=== PATIENT | female | born 1990 | race Caucasian/White ===

== ENCOUNTER 2021-10-15 06:48 | Inpatient (IN) | payer MEDICAID ==
[~2021-10-15] VITALS: Ht 167.6 cm; Wt 110.2 kg
[2021-10-15] MEDS ORDERED: CEFAZOLIN SODIUM 1000MG/VIAL ONE (07:40)
[2021-10-15] MEDS ORDERED: MORPHINE SULFATE/PF 1MG/ML 10ML AMP ONE (07:40)
[2021-10-15] MEDS ORDERED: OXYTOCIN 10 UNITS/ML 1ML ONE (07:40)
[2021-10-15] MEDS ORDERED: EPHEDRINE SULFATE 50MG/ML VIAL ONE (07:40)
[2021-10-15] MEDS ORDERED: DIPHENHYDRAMINE 50MG/ML VIAL ONE (07:40)
[2021-10-15] MEDS ORDERED: PHENYLEPHRINE HCL 10 MG/ML 1ML (IV VIAL) IV ONE (07:40)
[2021-10-15] MEDS ORDERED: ONDANSETRON HCL 4MG/2ML INJ ONE (07:40)
[2021-10-15] MEDS ORDERED: FENTANYL CITRATE/PF 50MCG/ML 2ML VIAL ONE (07:40)
[2021-10-15] MEDS ORDERED: CITRIC ACID/SODIUM CITRATE SOLN 30ML UDC PO NR (08:00)
[2021-10-15] MEDS: LACTATED RINGERS 1,000 ML IV SCH (09:03)
[2021-10-15 09:22] LABS: CLARITY URINE CLOUDY (CLEAR); COLOR URINE YELLOW (YELLOW); KETONES URINE NEGATIVE (NEGATIVE); LEUKOCYTE ESTERASE URINE 3+ (NEGATIVE); NITRITE URINE NEGATIVE (NEGATIVE); OCCULT BLOOD URINE TRACE (NEGATIVE); PROTEIN URINE 1+ (NEGATIVE); SPECIFIC GRAVITY URINE 1.018 (1.005-1.030)
[2021-10-15 09:29] LABS: BASOPHILS % 0.3 % (0.0-2.0); EOSINOPHILS % 0.8 % (0.0-5.0); HEMATOCRIT. 39.1 % (36.0-48.0); HEMOGLOBIN. 13.3 g/dL (12.0-16.0); LYMPHOCYTES % 25.7 % (20.0-50.0); MEAN CORPUSCULAR HEMOGLOBIN 28.2 pg (28.0-32.0); MEAN CORPUSCULAR VOLUME 83.1 fL (81.0-99.0); MEAN PLATELET VOLUME 9.7 fl (7.4-10.4); MONOCYTES % 4.6 % (2.0-8.0); NEUTROPHILS % 68.6 % (40.0-76.0); PLATELET 254 x1000/uL (130-400); RED CELL DISTRIBUTION WIDTH 14.4 % (11.6-14.6)
[2021-10-15 09:43] LABS: INR 0.9; PARTIAL THROMBOPLASTIN TIME 28.3 sec (23.4-31.0)
[2021-10-15 10:01] LABS: *AMPHETAMINES SCREEN URINE NEGATIVE (NEGATIVE); *BENZODIAZEPINES SCREEN URINE NEGATIVE (NEGATIVE); *COCAINE SCREEN URINE NEGATIVE (NEGATIVE)
[2021-10-15 10:02] LABS: CANNABINOID URINE SCREEN NEGATIVE (NEGATIVE); OPIATES URINE SCREEN NEGATIVE (NEGATIVE); PHENCYCLIDINE URINE SCREEN NEGATIVE (NEGATIVE)
[2021-10-15] MEDS ORDERED: METOCLOPRAMIDE HCL 10MG/2ML VIAL ONE (12:10)
[2021-10-15] MEDS ORDERED: KETOROLAC 60MG/2ML VIAL IM ONE (12:21)
[2021-10-15] MEDS ORDERED: METF-414 PO (14:14)
[2021-10-15] MEDS ORDERED: INSLIS SUBCUT (14:14)
[2021-10-15] MEDS ORDERED: OXYTOCIN 20 UNITS in LACTATED RINGERS 1,000 ML IV SCH (14:45)
[2021-10-15] MEDS ORDERED: ONDANSETRON HCL 4MG/2ML INJ IV PRN (14:45)
[2021-10-15] MEDS ORDERED: RHO(D) IMMUNE GLOBULIN 300 MCG/SYR IM PRN (14:45)
[2021-10-15] MEDS ORDERED: IBUPROFEN 400MG TABLET PO PRN (14:45)
[2021-10-15] MEDS ORDERED: BISACODYL 10MG SUPP PR PRN (14:45)
[2021-10-15] MEDS ORDERED: HYDROCODONE/ACETAMINOPHEN 5/325MG TABLET PO PRN (14:45)
[2021-10-15] MEDS ORDERED: LANOLIN OINT 7GM TUBE TOP PRN (14:45)
[2021-10-15] MEDS: OXYTOCIN 20 UNITS in LACTATED RINGERS 1,000 ML IV SCH (14:48)
[2021-10-15] MEDS ORDERED: BUTORPHANOL TARTRATE 2 MG/ML VIAL IV PRN ×2 (16:15)
[2021-10-15] MEDS ORDERED: NALOXONE HCL 0.4 MG/ML 1ML VIAL IV PRN (16:15)
[2021-10-15] MEDS ORDERED: DIPHENHYDRAMINE 50MG/ML VIAL IV PRN (16:15)
[2021-10-15] MEDS: KETOROLAC 30MG/ML VIAL IV SCH ×2 (16:26→22:57)
[2021-10-15 16:47] LABS: HEPATITIS B SURFACE ANTIGEN NEGATIVE
[2021-10-15 19:30] VITALS: BP 115/62
[2021-10-15] MEDS: DOCUSATE SODIUM 100MG CAPSULE PO SCH (21:34)
[2021-10-16] VITALS: BP 105/57
[2021-10-16] MEDS: OXYTOCIN 20 UNITS in LACTATED RINGERS 1,000 ML IV SCH (01:58)
[2021-10-16 04:00] VITALS: BP 105/60
[2021-10-16] MEDS: KETOROLAC 30MG/ML VIAL IV SCH (05:22)
[2021-10-16 07:55] VITALS: BP 109/68
[2021-10-16] MEDS: PRENATAL VIT/FE FUMARATE/FA TABLET PO SCH (09:21)
[2021-10-16] MEDS: LACTATED RINGERS 1,000 ML IV SCH (10:18)
[2021-10-16 12:24] LABS: BASOPHILS % 0.4 % (0.0-2.0); EOSINOPHILS % 0.4 % (0.0-5.0); HEMOGLOBIN. 11.7 g/dL (12.0-16.0); LYMPHOCYTES % 24.9 % (20.0-50.0); MEAN CORPUSCULAR HEMOGLOBIN 28.8 pg (28.0-32.0); MEAN CORPUSCULAR VOLUME 83.6 fL (81.0-99.0); MEAN PLATELET VOLUME 8.9 fl (7.4-10.4); MONOCYTES % 6.8 % (2.0-8.0); NEUTROPHILS % 67.5 % (40.0-76.0); PLATELET 237 x1000/uL (130-400); RED BLOOD CELL COUNT 4.07 mill/uL (4.2-5.4); RED CELL DISTRIBUTION WIDTH 14.6 % (11.6-14.6)
[2021-10-16 16:00] VITALS: BP 122/85
[2021-10-16] MEDS: HYDROCODONE/ACETAMINOPHEN 5/325MG TABLET PO PRN ×2 (16:11→20:20)
[2021-10-16 19:30] VITALS: BP 127/79
[2021-10-16] MEDS: DOCUSATE SODIUM 100MG CAPSULE PO SCH (20:20)
[2021-10-16 22:13] LABS: *BARBITURATES SCREEN URINE NEGATIVE (NEGATIVE); METHADONE URINE SCREEN NEGATIVE (NEGATIVE)
[2021-10-17] MEDS: HYDROCODONE/ACETAMINOPHEN 5/325MG TABLET PO PRN ×4 (03:13→22:46)
[2021-10-17 04:00] VITALS: BP 115/76
[2021-10-17 08:10] VITALS: BP 135/78
[2021-10-17] MEDS: PRENATAL VIT/FE FUMARATE/FA TABLET PO SCH (08:45)
[2021-10-17 16:20] VITALS: BP 135/90
[2021-10-17 20:00] VITALS: BP 142/84
[2021-10-17] MEDS: DOCUSATE SODIUM 100MG CAPSULE PO SCH (20:48)
[2021-10-18 04:30] VITALS: BP 140/80
[2021-10-18] MEDS: HYDROCODONE/ACETAMINOPHEN 5/325MG TABLET PO PRN (06:36)
[2021-10-18 07:52] VITALS: BP 122/68
[2021-10-18] MEDS: PRENATAL VIT/FE FUMARATE/FA TABLET PO SCH (09:01)
== END 2021-10-18 13:05 | disposition home or self-care (01) | DRG 540 ==
LOC: 8EST 06:48 → 8 EST LDRP 07:02 → 8EST 17:10
PROVIDERS: ADMIT Obstetrics & Gynecology; ATTEND Obstetrics & Gynecology
PROC: 10D00Z1 Extraction of Products of Conception, Low, Open Approach (ICD-10-PCS; principal; 2021-10-15)
DX: O32.1XX0 Maternal care for breech presentation, not applicable or unspecified (principal); O24.420 Gestational diabetes mellitus in childbirth, diet controlled; O69.81X0 Labor and delivery complicated by cord around neck, without compression, not applicable or unspecified; Z20.822 Contact with and (suspected) exposure to COVID-19; Z3A.39 39 weeks gestation of pregnancy; Z37.0 Single live birth
CPT/HCPCS: 36415; 76805; 76818; 80305; 81003; 82947; 82962; 85025; 86592; 86703; 86762; 86850; 86900; 87340; 87426; 88307; 99281; J0690; J1200; J1885; J2274; J2370; J2405; J2765; J3010; J3490; J7120; A4315